=== PATIENT | female | born 1985 | race Caucasian/White ===

== ENCOUNTER 2022-12-31 09:11 | Emergency (ER) | payer OTHER ==
[2022-12-31 09:32] VITALS: BP 136/91; PULSE 73; RESP 18; TEMP 98.2; BMI 21.2
[2022-12-31] MEDS ORDERED: ACETAMINOPHEN 325 MG TABLET (FP) PO ONE (10:11)
[2022-12-31] MEDS ORDERED: ACETAMINOPHEN 500 MG TABLET (FP) ONE (10:23)
== END 2022-12-31 12:51 | disposition home or self-care (01) ==
LOC: JER 09:11 → JERFT 09:11
DX: M54.6 Pain in thoracic spine (principal); M54.2 Cervicalgia; R51.9 Headache, unspecified; M25.561 Pain in right knee; V43.53XA Car driver injured in collision with pick-up truck in traffic accident, initial encounter; Y93.I9 Activity, other involving external motion; Y92.410 Unspecified street and highway as the place of occurrence of the external cause
CPT/HCPCS: 72128-TC; 84703; 99284-25